=== PATIENT | male | born 1995 | race Two or more races ===

== ENCOUNTER 2020-07-08 20:57 | Emergency (ER) | payer MEDICAID ==
[~2020-07-08] VITALS: Ht 177.8 cm; Wt 93.0 kg
[2020-07-08 21:38] VITALS: BP 150/90
[2020-07-09] MEDS ORDERED: KETOROLAC TROMETH 60MG/2ML VIAL IM ONE
== END 2020-07-09 00:55 | disposition home or self-care (01) ==
LOC: ER 21:01
DX: M54.2 Cervicalgia (principal); M79.18 Myalgia, other site; V43.52XA Car driver injured in collision with other type car in traffic accident, initial encounter; Y93.89 Activity, other specified; Y92.89 Other specified places as the place of occurrence of the external cause; Y99.8 Other external cause status
CPT/HCPCS: 70450; 71046; 72100; 72125; 96372; 99285; J1885